=== PATIENT | male | born 1950 | race Caucasian/White ===

== ENCOUNTER 2018-10-06 08:30 | Outpatient (RCR) | payer MEDICARE, SELFPAY ==
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
--- OUTSIDE RECORDS SUMMARY | 2018-11-20 06:11 | XMS RPT_ITS ---
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 More... Abnormal weight loss [R63.4] INVALID FOR* More... Altered bowel habits [R19.4] INVALID FOR* More... Prescriptions ordered this encounter Disp Refills Start End CLONAZEPAM 1 MG TABLET 180 * 0 09/20/2018 12/19/2018 Class: Print RX Route: ORAL Sig: Take 1 tablet by mouth twice daily as needed for up to 90 days. TRAMADOL ER 100 MG TABLET,EXTENDED R* 90 t* 0 09/20/2018 12/19/2018 Class: Print RX Route: ORAL Sig: Take 1 tablet by mouth once daily for 90 days. Medications Discontinued During This Encounter sucralfate (CARAFATE) 1 gram tablet 56 t* 0 07/21/2018 09/20/2018 Route: ORAL Sig: Take 1 tablet by mouth four times daily. Take before meals and at bedtime. Disc: Reason for discontinue is not on file. omeprazole (PRILOSEC) 20 mg capsule 30 c* 1 07/18/2018 09/20/2018 Route: ORAL Sig: Take 1 capsule by mouth daily before breakfast. 1/2 hr before meal. Disc: Reason for discontinue is not on file. FOLIC ACID/MULTIVIT-MIN/LUTEIN (CENT* 09/20/2018 Class: Historical Med Route: ORAL Sig: Take by mouth. Disc: Reason for discontinue is not on file. clonazePAM (KLONOPIN) 1 mg tablet 180 * 0 05/13/2018 09/20/2018 Class: Call Rx Route: ORAL Sig: Take 1 tablet by mouth three times daily as needed for up to 90 days. Disc: Reason for discontinue is not on file. Disposition: Return in about 3 months (around 12/21/2018). Follow-up and Disposition History Recorded Encounter Status:Closed by HERNAN PEREZ MD on 09/20/18 PROGRESS Observed: 08/09/2018 Status: COMPLETED Source: [place] 7:[address] [facility] [place] REPOSITORY O ID: [id number] Author: Violet Lopez (Layo) Levon Service: (none) Author Type: Nurse Practitioner Type: Progress Notes Filed: 08/09/2018 9:21 AM Note Text: Chief Complaint Patient presents with: Recheck: medication Imm/Inj: Flu Vaccine HPI Kenny Blackwell is a 68 year old male who presents here today for follow up heartburn and GERD. Since last seen he has started on Carafate, qid regimen. Reports the pain with heartburn, and reflux has completely resolved, however, he notes on 2 occasions in the past 2 weeks he has awakened in the night with nausea which resolves without intervention. He denies vomiting. He does admit to occasional night sweats, nothing recent. He has returned from his trip to [place], visit with his sister, had a great trip. Denies any weight loss, had recent weight gain. Last 3 Encounter Wt Readings: Date: Wt: 08/09/2018 68 kg (150 lb) 07/18/2018 64.9 kg (143 lb) 03/17/2018 66.9 kg (147 lb 6.4 oz) 9/HPI Kenny Blackwell is a 68 year old male who presents here today for Above Complaints, would like labs done. H/o h pylori infection in 2009, proof of cure breath test completed. Had EGD and Colonoscopy 10 months ago, Bx negative for h pylori. Reports no new foods or triggers to cause flare, nothing in his diet has changed, however, he noticed 4 days ago increase in sx and have progressively worsened. He is getting ready to travel to [place] to visit sister. Relates 2 sisters recently passed within 5 months of each other. Leaving end of this week. Has used OTC tabs without improvement. Reports sx include:acid Taste in mouth, epigastric burning, constant, symptoms wake him during the night. Only food that didn't flare sx was mac and cheese and oatmeal. + nausea denies any vomiting, denies any dark or tarry stools, no blood in stool. Reports last week he did notice decrease in stool frequency, last BM was this morning. ?REVIEW OF SYSTEMS PAIN ASSESSMENT: Negative for pain, history of chronic pain, or current treatment for a chronic pain condition. GENERAL: No weight loss, malaise or fevers RESPIRATORY: Negative for cough, hemoptysis, wheezing, COPD, dyspnea or shortness of breath CARDIOVASCULAR: Negative for chest pain, leg swelling, hypertension, CHF or palpitations GI: See HPI PSYCH: Positive for sleep disturbance: difficulties with sleep onset. Using Clonazepam at hs for sleep onset. Notes occasional sencond dose of Clonazepam. The ROS is otherwise negative. Past medical history, appointments, medications, allergies reviewed. Patient Allergies ALLERGIES Allergen Reactions - Codeine Other: See Comments keeps patient awake - Diclofenac Rash - Flagyl [Metronidazo* Intolerance headache, nausea and increased salivation - Flexeril [Cyclobenz* Other: See Comments Leg cramps - [place] Shortness of Breath - Oxycodone Other: See Comments restlessness - Penicillins - Vicodin [Hydrocodon* Other: See Comments Makes patient hyper Current Medications Current Outpatient Prescriptions on File Prior to Visit: sucralfate (CARAFATE) 1 gram tablet Take 1 tablet by mouth four times daily. Take before meals and at bedtime. omeprazole (PRILOSEC) 20 mg capsule Take 1 capsule by mouth daily before breakfast. 1/2 hr before meal. traMADol (ULTRAM) 50 mg tablet 1 tablet po daily. clonazePAM (KLONOPIN) 1 mg tablet Take 1 tablet by mouth three times daily as needed for up to 90 days. selenium FOLIC ACID/MULTIVIT-MIN/LUTEIN (CENTRUM SILVER ORAL) Take by mouth. No current facility-administered medications on file prior to visit. Previous Medical History PAST MEDICAL HISTORY Diagnosis Date - Basal cell carcinoma 01/31/2013 - Depression - Hypertension - Nausea - Neck pain - Sebaceous cyst 03/13/2014 Previous Surgical History PAST SURGICAL HISTORY Procedure Laterality Date - APPENDECTOMY - COLONOSCOP W/ OR W/O BRSH SPEC 04/05/2013 Colonoscopy - EGD W/O OR W/BRUSH/WASH 12/06/2009 EGD - EGD W/O OR W/BRUSH/WASH 04/05/2013 EGD - REM LESIO TRUNK,ARM,LEG 1.1 -2.0CM 03/13/14 Exc. 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 General Appearance: Well appearing, alert, in no acute distress, well-hydrated, well nourished.. Ears: External ears normal, canals clear. Oropharynx: Lips, mucosa, and tongue normal, teeth and gums normal, oropharynx normal. Neck: Supple, no adenopathy; thyroid symmetric, normal size, Lungs: Lungs clear to auscultation. No wheezing, rhonchi, rales. Heart: RRR without murmur, gallop, or rubs. No ectopy. Abdomen: Normal abdominal exam, Abdomen soft, non-tender. Bowel sounds normal. No masses, organomegaly. ASSESSMENT/PLAN: 1. GERD with esophagitis - ICD9: 530.11, ICD10: K21.0 (primary diagnosis) - Discussed lifestyle modifications including no meals three hours before sleep and head of bed elevation - Check breath test after completing 2 month course PPI - Continue treatment with Prilosec 20 mg QD - Follow up in 6weeks For Breath test - BREATH TEST H PYLORI 2. Need for vaccination - ICD9: V05.9, ICD10: Z23 - INFLUENZA SEASONAL HIGH DOSE AGE 65+ 3. Nausea - ICD9: 787.02, ICD10: R11.0 - BREATH TEST H PYLORI Recommend adding Melatonin to has for sleep and discussed white noise machine and sleep hygiene practices. Violet Dos Santos, MSN SUPERVISOR [employer]MACHINE JOINT CUTTER PROGRESS Observed: 08/09/2018 Status: COMPLETED Source: [place] 7:[address] [facility] RE[facility]ITORY O ID: [id number] Author: Nafisa Gardner LPN Service: (none) Author Type: (none) Type: Progress Notes Filed: 08/09/2018 9:21 AM Note Text: 68 year old male here for INACTIVATED INFLUENZA VACCINE. [id number] Season Patient is identified by name and date of : Yes [] CONTRAINDICATIONS color enhanced section Age less than 6 months? No Allergy to eggs, chicken, chicken feathers, or chicken dander? No Allergy to thimerosal (a preservative) or formaldehyde, gelatin? No History of severe reaction to any vaccine component or a previous dose of influenza vaccination? No History of Guillain-Nubieber Syndrome within 6 weeks after a previous influenza vaccine? No Patient is not moderately or severely ill? No Current temperature greater or equal to 100.4F? No History of Bone Marrow Transplant prior 6 months or solid organ transplant in the past 3 months ? No History of fainting after a prior injection or medical procedure? No- ? If patient has fainted in the past, the CDC recommends sitting or lying down for 15 minutes after the vaccination. [] VERIFICATION color enhanced section Was the answer Yes for any of the above contraindications? No contraindications present. Acceptable to proceed with vaccine. Patient/guardian agrees the above answers are true to the best of their knowledge? Yes Flu vaccine information sheet given? Yes See immunization activity in [facility] for details of immunizations adminstered today. Patient age: [age] year old For The 0425-6988 Flu Season 6-35 months old: Fluzone 0.25 ml - IM (Preservative Free) 3 years of age: Fluzone 0.5 ml - IM (Preservative Free) 3 years and older: Fluzone 0.5 ml- IM-(with Preservatives) 65+ years old: 2-49 years old Fluzone High-Dose 0.5 ml - IM (Preservative Free) FLUMIST- intranasal REMEMBER: If patient is less than 9 years of age and this is the first vaccine of Influenza to be received in any flu season, they should receive a second dose in one months time. SUNDAR Observed: 08/09/2018 Status: COMPLETED Source: [place] 7:40 AM [facility] REPOSITORY Office Visit (FAMPWS) KENNY BLACKWELL ([id number]) 1950 M Date Time Provider Department 08/09/18 7:40 AM VIOLET DOS SANTOS (STARCH COOKER) FAMPWS During your visit today, we recorded the following information about you: Temperature Pulse Respiration Blood pressure 97.2 degrees 60/minute 16/minute 136/86 Weight 68 kg Nafisa Gardner LPN 08/09/2018 9:21 AM Signed 68 year old male here for INACTIVATED INFLUENZA VACCINE. 5637-4528 Season Patient is identified by name and date of : Yes [] CONTRAINDICATIONS color enhanced section Age less than 6 months? No Allergy to eggs, chicken, chicken feathers, or chicken dander? No Allergy to thimerosal (a preservative) or formaldehyde, gelatin? No History of severe reaction to any vaccine component or a previous dose of influenza vaccination? No History of Guillain-Nubieber Syndrome within 6 weeks after a previous influenza vaccine? No Patient is not moderately or severely ill? No Current temperature greater or equal to 100.4F? No History of Bone Marrow Transplant prior 6 months or solid organ transplant in the past 3 months ? No History of fainting after a prior injection or medical procedure? No- ? If patient has fainted in the past, the CDC recommends sitting or lying down for 15 minutes after the vaccination. [] VERIFICATION color enhanced section Was the answer Yes for any of the above contraindications? No contraindications present. Acceptable to proceed with vaccine. Patient/guardian agrees the above answers are true to the best of their knowledge? Yes Flu vaccine information sheet given? Yes See immunization activity in [facility] for details of immunizations adminstered today. Patient age: [age] year old For The 6929-1684 Flu Season 6-35 months old: Fluzone 0.25 ml - IM (Preservative Free) 3 years of age: Fluzone 0.5 ml - IM (Preservative Free) 3 years and older: Fluzone 0.5 ml- IM-(with Preservatives) 65+ years old: 2-49 years old Fluzone High-Dose 0.5 ml - IM (Preservative Free) FLUMIST- intranasal REMEMBER: If patient is less than 9 years of age and this is the first vaccine of Influenza to be received in any flu season, they should receive a second dose in one months time. Violet Dos Santos, MSN SUPERVISOR [employer]MACHINE JOINT CUTTER 08/09/2018 9:21 AM Signed Chief Complaint Patient presents with: Recheck: medication Imm/Inj: Flu Vaccine HPI Kenny Blackwell is a 68 year old male who presents here today for follow up heartburn and GERD. Since last seen he has started on Carafate, qid regimen. Reports the pain with heartburn, and reflux has completely resolved, however, he notes on 2 occasions in the past 2 weeks he has awakened in the night with nausea which resolves without intervention. He denies vomiting. He does admit to occasional night sweats, nothing recent. He has returned from his trip to [place], visit with his sister, had a great trip. Denies any weight loss, had recent weight gain. Last 3 Encounter Wt Readings: Date: Wt: 08/09/2018 68 kg (150 lb) 07/18/2018 64.9 kg (143 lb) 03/17/2018 66.9 kg (147 lb 6.4 oz) 9/HPI Kenny Blackwell is a 68 year old male who presents here today for Above Complaints, would like labs done. H/o h pylori infection in 2009, proof of cure breath test completed. Had EGD and Colonoscopy 10 months ago, Bx negative for h pylori. Reports no new foods or triggers to cause flare, nothing in his diet has changed, however, he noticed 4 days ago increase in sx and have progressively worsened. He is getting ready to travel to [place] to visit sister. Relates 2 sisters recently passed within 5 months of each other. Leaving end of this week. Has used OTC tabs without improvement. Reports sx include:acid Taste in mouth, epigastric burning, constant, symptoms wake him during the night. Only food that didn't flare sx was mac and cheese and oatmeal. + nausea denies any vomiting, denies any dark or tarry stools, no blood in stool. Reports last week he did notice decrease in stool frequency, last BM was this morning. ?REVIEW OF SYSTEMS PAIN ASSESSMENT: Negative for pain, history of chronic pain, or current treatment for a chronic pain condition. GENERAL: No weight loss, malaise or fevers RESPIRATORY: Negative for cough, hemoptysis, wheezing, COPD, dyspnea or shortness of breath CARDIOVASCULAR: Negative for chest pain, leg swelling, hypertension, CHF or palpitations GI: See HPI PSYCH: Positive for sleep disturbance: difficulties with sleep onset. Using Clonazepam at hs for sleep onset. Notes occasional sencond dose of Clonazepam. The ROS is otherwise negative. Past medical history, appointments, medications, allergies reviewed. Patient Allergies ALLERGIES Allergen Reactions - Codeine Other: See Comments keeps patient awake - Diclofenac Rash - Flagyl [Metronidazo* Intolerance headache, nausea and increased salivation - Flexeril [Cyclobenz* Other: See Comments Leg cramps - [place] Shortness of Breath - Oxycodone Other: See Comments restlessness - Penicillins - Vicodin [Hydrocodon* Other: See Comments Makes patient hyper Current Medications Current Outpatient Prescriptions on File Prior to Visit: sucralfate (CARAFATE) 1 gram tablet Take 1 tablet by mouth four times daily. Take before meals and at bedtime. omeprazole (PRILOSEC) 20 mg capsule Take 1 capsule by mouth daily before breakfast. 1/2 hr before meal. traMADol (ULTRAM) 50 mg tablet 1 tablet po daily. clonazePAM (KLONOPIN) 1 mg tablet Take 1 tablet by mouth three times daily as needed for up to 90 days. selenium FOLIC ACID/MULTIVIT-MIN/LUTEIN (CENTRUM SILVER ORAL) Take by mouth. No current facility-administered medications on file prior to visit. Previous Medical History PAST MEDICAL HISTORY Diagnosis Date - Basal cell carcinoma 01/31/2013 - Depression - Hypertension - Nausea - Neck pain - Sebaceous cyst 03/13/2014 Previous Surgical History PAST SURGICAL HISTORY Procedure Laterality Date - APPENDECTOMY - COLONOSCOP W/ OR W/O BRSH SPEC 04/05/2013 Colonoscopy - EGD W/O OR W/BRUSH/WASH 12/06/2009 EGD - EGD W/O OR W/BRUSH/WASH 04/05/2013 EGD - REM LESIO TRUNK,ARM,LEG 1.1 -2.0CM 03/13/14 Exc. 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 General Appearance: Well appearing, alert, in no acute distress, well-hydrated, well nourished.. Ears: External ears normal, canals clear. Oropharynx: Lips, mucosa, and tongue normal, teeth and gums normal, oropharynx normal. Neck: Supple, no adenopathy; thyroid symmetric, normal size, Lungs: Lungs clear to auscultation. No wheezing, rhonchi, rales. Heart: RRR without murmur, gallop, or rubs. No ectopy. Abdomen: Normal abdominal exam, Abdomen soft, non-tender. Bowel sounds normal. No masses, organomegaly. ASSESSMENT/PLAN: 1. GERD with esophagitis - ICD9: 530.11, ICD10: K21.0 (primary diagnosis) - Discussed lifestyle modifications including no meals three hours before sleep and head of bed elevation - Check breath test after completing 2 month course PPI - Continue treatment with Prilosec 20 mg QD - Follow up in 6weeks For Breath test - BREATH TEST H PYLORI 2. Need for vaccination - ICD9: V05.9, ICD10: Z23 - INFLUENZA SEASONAL HIGH DOSE AGE 65+ 3. Nausea - ICD9: 787.02, ICD10: R11.0 - BREATH TEST H PYLORI Recommend adding Melatonin to has for sleep and discussed white noise machine and sleep hygiene practices. Violet Dos Santos, MSN SUPERVISOR [employer]ACHINE JOINT CUTTER Referring Provider: VIOLET DOS SANTOS (STARCH COOKER) [[id number]] Allergies As of Date: 08/09/2018 Noted Allergy Reaction CODEINE 05/16/2014 14 - Other: See Comments Comments: keeps patient awake DICLOFENAC 05/24/2015 2 - Rash FLAGYL (METRONIDAZOLE HCL) 10/01/2009 5 - Intolerance Comments: headache, nausea and increased salivation FLEXERIL (CYCLOBENZAPRINE HCL) 02/05/2014 14 - Other: See Comments Comments: Leg cramps ORANGE BLOSSOM 06/28/2012 12 - Shortness of Breath OXYCODONE 09/29/2013 14 - Other: See Comments Comments: restlessness PENICILLINS 09/17/2009 VICODIN (HYDROCODONE-ACETAMINOPHE*09/29/2010 14 - Other: See Comments Comments: Makes patient hyper Date Reviewed: 08/09/2018 Reviewed by: Violet Lopez (Escrow Assistant) Levon - Fully Assessed Reason for Visit: Recheck [92] Cmt: medication Imm/Inj [58] Cmt: Flu Vaccine Reason For Visit History Recorded Primary Visit Diagnosis:GERD with esophagitis [K21.0] Other Visit Diagnoses:Need for vaccination [Z23] Nausea [R11.0] Order(s):INFLUENZA SEASONAL HIGH DOSE AGE 65+ [[id number]] Order #: [id number] BREATH TEST H PYLORI [SQHPYLBR] Order #: [id number] FUTURE Prescriptions as of 08/09/2018 Sig: SUCRALFATE 1 GRAM TABLET Take 1 tablet by mouth four t* OMEPRAZOLE 20 MG CAPSULE,MADISYN* Take 1 capsule by mouth daily* TRAMADOL 50 MG TABLET 1 tablet po daily. CLONAZEPAM 1 MG TABLET Take 1 tablet by mouth three * SELENIUM CENTRUM SILVER ORAL Take by mouth. Problem List As Of Date 08/09/2018 Noted Resolved Acute gastritis without mention of hemorrhage [*INVALID FOR* More... Dyspepsia [R10.13] INVALID FOR* Esophageal reflux [K21.9] INVALID FOR* HBP (high blood pressure) [I10] INVALID FOR* Depression [F32.9] INVALID FOR* More... Vertigo [R42] INVALID FOR* Unspecified sleep apnea [G47.30] INVALID FOR* More... RUQ abdominal pain [R10.11] INVALID FOR*07/24/2013 Lumbosacral spondylosis without myelopathy [M47*INVALID FOR* Degeneration of cervical intervertebral disc [M*INVALID FOR* Brachial neuritis or radiculitis NOS [M54.12] INVALID FOR* Dizziness [R42] INVALID FOR*07/24/2013 Cervical spinal stenosis [M48.02] INVALID FOR* More... Cervical radicular pain [M54.12] INVALID FOR*03/05/2014 Cervical spondylosis with radiculopathy [M47.22]INVALID FOR* More... Basal cell carcinoma [C44.91] INVALID FOR* Sebaceous cyst [L72.3] INVALID FOR*03/26/2014 SOB (shortness of breath) [R06.02] INVALID FOR* More... Anxiety [F41.9] INVALID FOR* Panic disorder [F41.0] INVALID FOR* Shoulder pain, bilateral [M25.511, M25.512] INVALID FOR* Cervical radiculitis [M54.12] INVALID FOR* History of fusion of cervical spine [Z98.1] INVALID FOR* Essential hypertension [I10] INVALID FOR* Nausea [R11.0] INVALID FOR* More... Abnormal weight loss [R63.4] INVALID FOR* More... Altered bowel habits [R19.4] INVALID FOR* More... Encounter Status:Closed by VIOLET DOS SANTOS MACHINE JOINT CUTTER on 08/09/18 CBC AND DIFFERENTIAL Collected: 07/18/2018 Status: F Source: [place] 10:32 AM [facility] REPOSITORY TYPE CODE TESTS RESULT OUT OF REFERENCE UNITS RANGE LAB WBC 3.70-11.00 k/uL WBC 10.03 LAB RBC 4.20-6.00 m/uL RBC 4.60 LAB HGB 13.0-17.0 g/dL Hemoglobin 13.6 LAB HCT 39.0-51.0 % Hematocrit 42.1 LAB MCV 80.0-100.0 fL MCV 91.5 LAB MCH 26.0-34.0 pG MCH 29.6 LAB MCHC 30.5-36.0 g/dL MCHC 32.3 LAB RDWCV 11.5-15.0 % RDW-CV 13.2 LAB PLTCT 150-400 k/uL Platelet Count 254 LAB MPV 9.0-12.7 fL MPV 10.8 LAB ANEUT % Neut% 75.8 LAB AANEUT 1.45-7.50 k/uL Abs Neut High 7.61 LAB ALYMP % Lymph% 15.4 LAB AALYMP 1.00-4.00 k/uL Abs Lymph 1.54 LAB AMONO % [place]% 8.3 LAB AAMONO <0.87 k/uL Abs [place] 0.83 LAB AEOS % Eosin% 0.2 LAB AAEOS <0.46 k/uL Abs Eosin <0.03 LAB ABASO % Baso% 0.3 LAB AABASO <0.11 k/uL Abs Baso 0.03 LAB AUNRBC 0 /100 WBC NRBCs 0.0 LAB ABNRBC <0.01 k/uL Absolute nRBC <0.01 LAB DTYP DTYPE Auto Diff Performed By: #### CBCDIF, CMP, LIPA, PSA #### [facility] [address] [place] [id number] COMP METABOLIC PANEL Collected: 07/18/2018 Status: F Source: [place] 10:[address] [facility] RE[facility]ORY TYPE CODE TESTS RESULT OUT OF REFERENCE UNITS RANGE LAB TP 6.3-8.0 g/dL Protein, Total 7.2 LAB ALB 3.9-4.9 g/dL Albumin 4.3 LAB CA 8.5-10.2 mg/dL Calcium, Total 9.1 LAB TBIL 0.2-1.3 mg/dL Bilirubin, Total 0.4 LAB ALKP 36-108 U/L Alkaline Phosphatase 44 LAB AST 14-40 U/L AST 15 LAB GLU 74-99 mg/dL Glucose High 100 Result Comment: The [place] [employer] (ADA) provides guidance for cutoff values for fasting glucose and random glucose. The ADA defines fasting as no caloric intake for at least 8 hours. Fas ting plasma glucose results between 100 to 125 mg/dL indicate increased risk for diabetes (prediabetes). Fasting plasma glucose results greater than or equal to 126 mg/dL meet the criteria for diagnosis of diabetes. In the absence of unequivocal hyperglycemia, results should be confirmed by repeat testing. In a patient with classic symptoms of hyperglycemia or hyperglycemic crisis, random plasma glucose results greater than or equal to 200 mg/dL meet the criteria for diagnosis of diabetes. Reference: Standards of Medical Care in Diabetes 2016, [place] [employer]. Diabetes Care. 2016.39(Suppl 1). LAB BUN 9-24 mg/dL BUN 13 LAB CRET 0.73-1.22 mg/dL Creatinine 0.96 LAB NA 136-144 mmol/L Sodium 138 LAB K 3.7-5.1 mmol/L Potassium 4.1 LAB CL 97-105 mmol/L Chloride 100 LAB CO2 22-30 mmol/L CO2 25 LAB AGAP 9-18 mmol/L Anion Gap 13 LAB ALT 10-54 U/L ALT Low 6 LAB GFRAA eGFR- Amer. >60 LAB GFRNAA . eGFR-All Other Races >60 Result Comment: eGFR (Estimated GFR) Units of measure: mL/min/1.73 meters squared eGFR is derived from the reexpressed MDRD Study equation using the following parameters: serum creatinine, age, gender and race. The creatinine assay has been calibrated to be traceable to IDMS. An eGFR <60 mL/min/1.73m2 for >3 months is consistent with chronic kidney disease. Refer to KDOQI guidelines for clinical interpretation. In patients with unstable renal function, e.g. those with acute kidney injury, the eGFR may not accurately reflect actual GFR. Performed By: #### CBCDIF, CMP, LIPA, PSA #### [facility] [employer] [address], [place] [address] LIPASE Collected: 07/18/2018 Status: F Source: [place] 10:[address] [facility] REPOSITORY TYPE CODE TESTS RESULT OUT OF REFERENCE UNITS RANGE LAB LIPA 16-61 U/L Lipase 31 Performed By: #### CBCDIF, CMP, LIPA, PSA #### [facility] [address] [id number] PSA, DIAGNOSTIC Collected: 07/18/2018 Status: F Source: [place] 10:32 AM [facility] REPOSITORY TYPE CODE TESTS RESULT OUT OF REFERENCE UNITS RANGE LAB PSA 0.00-2.59 ng/mL PSA, Diagnostic 0.38 Result Comment: Total PSA test methodology used is the Electrochemiluminescence Immunoassay. Performed By: #### CBCDIF, CMP, LIPA, PSA #### [facility] [address] [id number] TSH Collected: 07/18/2018 Status: F Source: [place] 10:32 AM [facility] REPOSITORY TYPE CODE TESTS RESULT OUT OF RANGE REFERENCE UNITS LAB TSH 0.400-5.500 uU/mL TSH 1.790 Performed By: #### TSH #### [place] [id number] PROGRESS Observed: 07/18/2018 Status: COMPLETED Source: [place] 9:55 AM [facility] REPOSITORY HNO ID: [id number] Author: Violet Lopez (Layo) Levon Service: (none) Author Type: Nurse Practitioner Type: Progress Notes Filed: 07/18/2018 10:28 AM Note Text: Chief Complaint Patient presents with: acid reflux: patient is having a flare up x 5 days HPI Kenny Blackwell is a 68 year old male who presents here today for Above Complaints, would like labs done. H/o h pylori infection in 2009, proof of cure breath test completed. Had EGD and Colonoscopy 10 months ago, Bx negative for h pylori. Reports no new foods or triggers to cause flare, nothing in his diet has changed, however, he noticed 4 days ago increase in sx and have progressively worsened. He is getting ready to travel to [place] to visit sister. Relates 2 sisters recently passed within 5 months of each other. Leaving end of this week. Has used OTC tabs without improvement. Reports sx include:acid Taste in mouth, epigastric burning, constant, symptoms wake him during the night. Only food that didn't flare sx was mac and cheese and oatmeal. + nausea denies any vomiting, denies any dark or tarry stools, no blood in stool. Reports last week he did notice decrease in stool frequency, last BM was this morning. Patient Name Sex Kenny Blackwell ([id number]) Male 1950 10/14/2017 11:27 AM - Interface, Results II Results Specimen originated from [facility] Specimen #: [id number] Submitting Physician: ROSANNA DELVALLE MD FINAL DIAGNOSIS 1. Antrum, biopsy (A) - Gastric antral mucosa with no significant diagnostic alteration. - No morphologic evidence of Helicobacter pylori organisms. ? 2. Cecum polyp, biopsy (B) - Tubular adenoma. ? 3. Random colon, biopsy (C) - Colonic mucosa with no specific diagnostic alteration. See comment. ? LMY/dss 10/14/2017 ? COMMENT 3. There is no evidence of chronic or active colitis. There is no evidence of lymphocytic or collagenous colitis. Gloria Gillespie M.D. (Electronic Signature) Past medical history, appointments, medications, allergies reviewed. Previous Medical History PAST MEDICAL HISTORY Diagnosis Date - Basal cell carcinoma 01/31/2013 - Depression - Hypertension - Nausea - Neck pain - Sebaceous cyst 03/13/2014 Previous Surgical History PAST SURGICAL HISTORY Procedure Laterality Date - APPENDECTOMY - COLONOSCOP W/ OR W/O BRSH SPEC 04/05/2013 Colonoscopy - EGD W/O OR W/BRUSH/WASH 12/06/2009 EGD - EGD W/O OR W/BRUSH/WASH 04/05/2013 EGD - REM LESIO TRUNK,ARM,LEG 1.1 -2.0CM 03/13/14 Exc. jonathan cysts x 2 - XR CERVICAL FUSION OR 09/15/14 Family History FAMILY HISTORY Problem Relation Age of Onset - Alzheimer's Disease Mother - other (Sepsis) Sister - None Other Patient Allergies ALLERGIES Allergen Reactions - Codeine Other: See Comments keeps patient awake - Diclofenac Rash - Flagyl [Metronidazo* Intolerance headache, nausea and increased salivation - Flexeril [Cyclobenz* Other: See Comments Leg cramps - [place] Shortness of Breath - Oxycodone Other: See Comments restlessness - Penicillins - Vicodin [Hydrocodon* Other: See Comments Makes patient hyper Current Medications Current Outpatient Prescriptions on File Prior to Visit: traMADol (ULTRAM) 50 mg tablet 1 tablet po daily. clonazePAM (KLONOPIN) 1 mg tablet Take 1 tablet by mouth three times daily as needed for up to 90 days. FOLIC ACID/MULTIVIT-MIN/LUTEIN (CENTRUM SILVER ORAL) Take by mouth. selenium No current facility-administered medications on file prior to visit. 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 Social History Main Topics Smoking status: Former Smoker Packs/day: 1.00 Years: 25.00 Types: Cigarettes Quit date: 10/25/1990 Smokeless tobacco: Never Used Alcohol use: No Drug use: No Sexual activity: No Review of Symptoms REVIEW OF SYSTEMS PAIN ASSESSMENT: CURRENTLY HAVING PAIN; see HPI Epigastric region GENERAL: No weight loss, malaise or fevers HEENT: Negative for frequent or significant headaches, No changes in hearing or vision, no nose bleeds or other nasal problems NECK: Negative for lumps, goiter, pain and significant neck swelling RESPIRATORY: Negative for cough, hemoptysis, wheezing, COPD, dyspnea or shortness of breath CARDIOVASCULAR: Negative for chest pain, leg swelling, hypertension, CHF or palpitations GI: See HPI EXAM: BP 122/82 (BP Site: Right Arm, BP Position: Sitting, BP Cuff Size: Regular Adult) Pulse 76 Temp 36.9 ?C (98.5 ?F) (Tympanic) Resp 16 Wt 64.9 kg (143 lb) BMI 20.52 kg/m? General Appearance: Well appearing, alert, in no acute distress, well-hydrated, well nourished.. Oropharynx: Lips, mucosa, and tongue normal, teeth and gums normal, oropharynx normal. Neck: Supple, no adenopathy; thyroid symmetric, normal size, Lungs: Lungs clear to auscultation. No wheezing, rhonchi, rales. Heart: RRR without murmur, gallop, or rubs. No ectopy. Abdomen: Normal abdominal exam, Abdomen soft, non-tender. Bowel sounds normal. No masses, organomegaly, Positive findings: tenderness mild epigastric. Health Maintenance List BP CONTROLLED (<130/80) due on 1967 HEPATITIS C SCREENING due on 1993 INFLUENZA(1) due on 06/25/2018 ANNUAL PCP TEAM CHRONIC DISEASE VISIT due on 03/17/2019 LIPID SCREEN due on 01/27/2020 DIABETES SCREEN due on 09/29/2020 COLORECTAL CANCER SCREENING,SEE MODIFIER due on 10/11/2022 DTAP,TDAP,TD(3 - Td) due on 02/08/2028 ABDOMINAL AORTIC ANEURYSM SCREENING TOPIC Completed ADULT PREVNAR-13 Completed PNEUMOVAX AGE 65 AND OVER WITH 5YR LOOKBACK Completed ASSESSMENT/PLAN: 1. Gastroesophageal reflux disease without esophagitis - ICD9: 530.81, ICD10: K21.9 (primary diagnosis) - Check CBC, CMP ? Anxiety due to upcoming trip as underlying etiology. - Begin treatment with Prilosec 20 mg QD - Follow up in 3weeks -Keep diet bland for now, handout from [employer] given on GERD - OMEPRAZOLE 20 MG CAPSULE,DELAYED RELEASE 2. Epigastric pain - ICD9: 789.06, ICD10: R10.13 - Begin treatment with Prilosec 20 mg QD - Labs as ordered. - CBC + DIFF - COMP METABOLIC PANEL - LIPASE BLD 3. Screening for prostate cancer - ICD9: V76.44, ICD10: Z12.5 - PSA/PROSTSPECAG DANK Dos Santos, MSN [employer] CNOV Observed: 07/18/2018 Status: COMPLETED Source: [place] 9:40 AM [facility] RE[facility]ITORY [facility] KENNY BLACKWELL ([id number]) 1950 M Date Time Provider Department 07/18/18 9:40 AM VIOLET DOS SANTOS (STARCH COOKER) R[place] During your visit today, we recorded the following information about you: Temperature Pulse Respiration Blood pressure 98.5 degrees 76/minute 16/minute 122/82 Weight 64.9 kg Violet Dos Santos, MSN [employer] 07/18/2018 10:28 AM Signed Chief Complaint Patient presents with: acid reflux: patient is having a flare up x 5 days HPI Kenny Blackwell is a 68 year old male who presents here today for Above Complaints, would like labs done. H/o h pylori infection in 2009, proof of cure breath test completed. Had EGD and Colonoscopy 10 months ago, Bx negative for h pylori. Reports no new foods or triggers to cause flare, nothing in his diet has changed, however, he noticed 4 days ago increase in sx and have progressively worsened. He is getting ready to travel to [place] to visit sister. Relates 2 sisters recently passed within 5 months of each other. Leaving end of this week. Has used OTC tabs without improvement. Reports sx include:acid Taste in mouth, epigastric burning, constant, symptoms wake him during the night. Only food that didn't flare sx was mac and cheese and oatmeal. + nausea denies any vomiting, denies any dark or tarry stools, no blood in stool. Reports last week he did notice decrease in stool frequency, last BM was this morning. Patient Name Sex Kenny Blackwell ([id number]) Male 1950 10/14/2017 11:27 AM - Interface, Results II Results Specimen originated from [facility] Specimen #: [id number] Submitting Physician: ROSANNA DELVALLE MD FINAL DIAGNOSIS 1. Antrum, biopsy (A) - Gastric antral mucosa with no significant diagnostic alteration. - No morphologic evidence of Helicobacter pylori organisms. ? 2. Cecum polyp, biopsy (B) - Tubular adenoma. ? 3. Random colon, biopsy (C) - Colonic mucosa with no specific diagnostic alteration. See comment. ? LMY/dss 10/14/2017 ? COMMENT 3. There is no evidence of chronic or active colitis. There is no evidence of lymphocytic or collagenous colitis. Gloria Gillespie M.D. (Electronic Signature) Past medical history, appointments, medications, allergies reviewed. Previous Medical History PAST MEDICAL HISTORY Diagnosis Date - Basal cell carcinoma 01/31/2013 - Depression - Hypertension - Nausea - Neck pain - Sebaceous cyst 03/13/2014 Previous Surgical History PAST SURGICAL HISTORY Procedure Laterality Date - APPENDECTOMY - COLONOSCOP W/ OR W/O BRSH SPEC 04/05/2013 Colonoscopy - EGD W/O OR W/BRUSH/WASH 12/06/2009 EGD - EGD W/O OR W/BRUSH/WASH 04/05/2013 EGD - REM LESIO TRUNK,ARM,LEG 1.1 -2.0CM 03/13/14 Exc. jonathan cysts x 2 - XR CERVICAL FUSION OR 09/15/14 Family History FAMILY HISTORY Problem Relation Age of Onset - Alzheimer's Disease Mother - other (Sepsis) Sister - None Other Patient Allergies ALLERGIES Allergen Reactions - Codeine Other: See Comments keeps patient awake - Diclofenac Rash - Flagyl [Metronidazo* Intolerance headache, nausea and increased salivation - Flexeril [Cyclobenz* Other: See Comments Leg cramps - [place] Shortness of Breath - Oxycodone Other: See Comments restlessness - Penicillins - Vicodin [Hydrocodon* Other: See Comments Makes patient hyper Current Medications Current Outpatient Prescriptions on File Prior to Visit: traMADol (ULTRAM) 50 mg tablet 1 tablet po daily. clonazePAM (KLONOPIN) 1 mg tablet Take 1 tablet by mouth three times daily as needed for up to 90 days. FOLIC ACID/MULTIVIT-MIN/LUTEIN (CENTRUM SILVER ORAL) Take by mouth. selenium No current facility-administered medications on file prior to visit. 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 Social History Main Topics Smoking status: Former Smoker Packs/day: 1.00 Years: 25.00 Types: Cigarettes Quit date: 10/25/1990 Smokeless tobacco: Never Used Alcohol use: No Drug use: No Sexual activity: No Review of Symptoms REVIEW OF SYSTEMS PAIN ASSESSMENT: CURRENTLY HAVING PAIN; see HPI Epigastric region GENERAL: No weight loss, malaise or fevers HEENT: Negative for frequent or significant headaches, No changes in hearing or vision, no nose bleeds or other nasal problems NECK: Negative for lumps, goiter, pain and significant neck swelling RESPIRATORY: Negative for cough, hemoptysis, wheezing, COPD, dyspnea or shortness of breath CARDIOVASCULAR: Negative for chest pain, leg swelling, hypertension, CHF or palpitations GI: See HPI EXAM: BP 122/82 (BP Site: Right Arm, BP Position: Sitting, BP Cuff Size: Regular Adult) Pulse 76 Temp 36.9 ?C (98.5 ?F) (Tympanic) Resp 16 Wt 64.9 kg (143 lb) BMI 20.52 kg/m? General Appearance: Well appearing, alert, in no acute distress, well-hydrated, well nourished.. Oropharynx: Lips, mucosa, and tongue normal, teeth and gums normal, oropharynx normal. Neck: Supple, no adenopathy; thyroid symmetric, normal size, Lungs: Lungs clear to auscultation. No wheezing, rhonchi, rales. Heart: RRR without murmur, gallop, or rubs. No ectopy. Abdomen: Normal abdominal exam, Abdomen soft, non-tender. Bowel sounds normal. No masses, organomegaly, Positive findings: tenderness mild epigastric. Health Maintenance List BP CONTROLLED (<130/80) due on 1967 HEPATITIS C SCREENING due on 1993 INFLUENZA(1) due on 06/25/2018 ANNUAL PCP TEAM CHRONIC DISEASE VISIT due on 03/17/2019 LIPID SCREEN due on 01/27/2020 DIABETES SCREEN due on 09/29/2020 COLORECTAL CANCER SCREENING,SEE MODIFIER due on 10/11/2022 DTAP,TDAP,TD(3 - Td) due on 02/08/2028 ABDOMINAL AORTIC ANEURYSM SCREENING TOPIC Completed ADULT PREVNAR-13 Completed PNEUMOVAX AGE 65 AND OVER WITH 5YR LOOKBACK Completed ASSESSMENT/PLAN: 1. Gastroesophageal reflux disease without esophagitis - ICD9: 530.81, ICD10: K21.9 (primary diagnosis) - Check CBC, CMP ? Anxiety due to upcoming trip as underlying etiology. - Begin treatment with Prilosec 20 mg QD - Follow up in 3weeks -Keep diet bland for now, handout from [employer] given on GERD - OMEPRAZOLE 20 MG CAPSULE,DELAYED RELEASE 2. Epigastric pain - ICD9: 789.06, ICD10: R10.13 - Begin treatment with Prilosec 20 mg QD - Labs as ordered. - CBC + DIFF - COMP METABOLIC PANEL - LIPASE BLD 3. Screening for prostate cancer - ICD9: V76.44, ICD10: Z12.5 - PSA/PROSTSPECAG SEVENG Violet Dos Santos, MSN [employer] Referring Provider: SELF [[id number]] Allergies As of Date: 07/18/2018 Noted Allergy Reaction CODEINE 05/16/2014 14 - Other: See Comments Comments: keeps patient awake DICLOFENAC 05/24/2015 2 - Rash FLAGYL (METRONIDAZOLE HCL) 10/01/2009 5 - Intolerance Comments: headache, nausea and increased salivation FLEXERIL (CYCLOBENZAPRINE HCL) 02/05/2014 14 - Other: See Comments Comments: Leg cramps ORANGE BLOSSOM 06/28/2012 12 - Shortness of Breath OXYCODONE 09/29/2013 14 - Other: See Comments Comments: restlessness PENICILLINS 09/17/2009 VICODIN (HYDROCODONE-ACETAMINOPHE*09/29/2010 14 - Other: See Comments Comments: Makes patient hyper Date Reviewed: 07/18/2018 Reviewed by: Nafisa Gardner LPN - Fully Assessed Reason for Visit: acid reflux [Other] Cmt: patient is having a flare up x 5 days Primary Visit Diagnosis:Gastroesophageal reflux disease without esophagitis [K21.9] Other Visit Diagnoses:Epigastric pain [R10.13] Screening for prostate cancer [Z12.5] Order(s):omeprazole (PRILOSEC) 20 mg capsuleTake 1 capsule by mouth daily before breakfast. 1/2 hr before meal.Disp: 30 capsuleRfl: 1 CBC + DIFF [SQCBCDIF] Order #: [id number] FUTURE COMP METABOLIC PANEL [SQCMP] Order #: [id number] FUTURE LIPASE BLD [SQLIPA] Order #: [id number] FUTURE PSA/PROSTSPECAG DIAG [SQPSA] Order #: [id number] FUTURE Prescriptions as of 07/18/2018 Sig: TRAMADOL 50 MG TABLET 1 tablet po daily. CLONAZEPAM 1 MG TABLET Take 1 tablet by mouth three * CENTRUM SILVER ORAL Take by mouth. SELENIUM OMEPRAZOLE 20 MG CAPSULE,MADISYN* Take 1 capsule by mouth daily* Problem List As Of Date 07/18/2018 Noted Resolved Acute gastritis without mention of hemorrhage [*INVALID FOR* More... Dyspepsia [R10.13] INVALID FOR* Esophageal reflux [K21.9] INVALID FOR* HBP (high blood pressure) [I10] INVALID FOR* Depression [F32.9] INVALID FOR* More... Vertigo [R42] INVALID FOR* Unspecified sleep apnea [G47.30] INVALID FOR* More... RUQ abdominal pain [R10.11] INVALID FOR*07/24/2013 Lumbosacral spondylosis without myelopathy [M47*INVALID FOR* Degeneration of cervical intervertebral disc [M*INVALID FOR* Brachial neuritis or radiculitis NOS [M54.12] INVALID FOR* Dizziness [R42] INVALID FOR*07/24/2013 Cervical spinal stenosis [M48.02] INVALID FOR* More... Cervical radicular pain [M54.12] INVALID FOR*03/05/2014 Cervical spondylosis with radiculopathy [M47.22]INVALID FOR* More... Basal cell carcinoma [C44.91] INVALID FOR* Sebaceous cyst [L72.3] INVALID FOR*03/26/2014 SOB (shortness of breath) [R06.02] INVALID FOR* More... Anxiety [F41.9] INVALID FOR* Panic disorder [F41.0] INVALID FOR* Shoulder pain, bilateral [M25.511, M25.512] INVALID FOR* Cervical radiculitis [M54.12] INVALID FOR* History of fusion of cervical spine [Z98.1] INVALID FOR* Essential hypertension [I10] INVALID FOR* Nausea [R11.0] INVALID FOR* More... Abnormal weight loss [R63.4] INVALID FOR* More... Altered bowel habits [R19.4] INVALID FOR* More... Prescriptions ordered this encounter Disp Refills Start End OMEPRAZOLE 20 MG CAPSULE,DELAYED REL* 30 c* 1 07/18/2018 Route: ORAL Sig: Take 1 capsule by mouth daily before breakfast. 1/2 hr before meal. Disposition: Return in about 3 weeks (around 08/08/2018). Follow-up and Disposition History Recorded Encounter Status:Closed by VIOLET DOS SANTOS CNP on 07/18/18 PROGRESS Observed: 03/17/2018 Status: COMPLETED Source: [place] 8:[address] [facility] REPOSITORY HNO ID: [id number] Author: Hernan Perez Service: (none) Author Type: Physician Type: Progress Notes Filed: 03/17/2018 4:45 PM Note Text: Chief Complaint Patient presents with: F/U 3 Month: Anxiety/Depression and Pain HPI Kenny Blackwell is a 68 year old male who presents here today for a 3 mo f/u. Anxiety/Depression - Since his last visit he continues to still be doing very well. Continues to put his nikhil in gods hands and goes to buddhist weekly. Does admit that he lost his second sister on 01/18 in the last 5 months and feels he hasn't went through the grieving process yet. Neck pain - Continues to have neck pain that radiates down into his shoulder. S/P cervical fusion in 2013. 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 Overall stable with use of Tramadol 50 mg 1 tab every am. RED - Has not been a headache person previously but in the last 3 weeks had a headache located on the top of his head. Reports that he tried Aleve, Ibuprofen and Tylenol with no relief of symptoms. Had to leave work one day due to the symptoms. Denies any N/V or light sensitivity. No RED this week. Past medical history, appointments, medications, allergies reviewed. Previous Medical History PAST MEDICAL HISTORY Diagnosis Date - Basal cell carcinoma 01/31/2013 - Depression - Hypertension - Nausea - Neck pain - Sebaceous cyst 03/13/2014 Previous Surgical History PAST SURGICAL HISTORY Procedure Laterality Date - APPENDECTOMY - COLONOSCOP W/ OR W/O [facility] SPEC 04/05/2013 Colonoscopy - EGD W/O OR W/BRUSH/WASH 12/06/2009 EGD - EGD W/O OR W/BRUSH/WASH 04/05/2013 EGD - REM LESIO TRUNK,ARM,LEG 1.1 -2.0CM 03/13/14 Exc. jonathan cysts x 2 - XR CERVICAL FUSION OR 09/15/14 Family History FAMILY HISTORY Problem Relation Age of Onset - Alzheimer's Disease Mother - Sepsis [OTHER] Sister - None Other Patient Allergies ALLERGIES Allergen Reactions - Codeine Other: See Comments keeps patient awake - Diclofenac Rash - Flagyl [Metronidazo* Intolerance headache, nausea and increased salivation - Flexeril [Cyclobenz* Other: See Comments Leg cramps - [place] Shortness of Breath - Oxycodone Other: See Comments restlessness - Penicillins - Vicodin [Hydrocodon* Other: See Comments Makes patient hyper Current Medications Current Outpatient Prescriptions on File Prior to Visit: FOLIC ACID/MULTIVIT-MIN/LUTEIN (CENTRUM SILVER ORAL) Take by mouth. selenium No current facility-administered medications on file prior to visit. 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 General Appearance: Well appearing, alert, in no acute distress, well-hydrated, well nourished.. Neck: Pain up in the neck muscles. Tightness to palpate muscles Lungs: Lungs clear to auscultation. No wheezing, rhonchi, rales. Heart: RRR without murmur, gallop, or rubs. No ectopy. Health Maintenance List HEPATITIS C SCREENING due on 1993 ADULT PREVNAR-13 due on 2014 - Ordered LIPID SCREEN due on 01/27/2020 DIABETES SCREEN due on 09/29/2020 COLORECTAL CANCER SCREENING,SEE MODIFIER due on 10/11/2022 DTAP,TDAP,TD(3 - Td) due on 02/08/2028 PROSTATE CANCER SCREENING DISCUSSION Completed ABDOMINAL AORTIC ANEURYSM SCREENING TOPIC Completed INFLUENZA Completed PNEUMOVAX AGE 65 AND OVER WITH 5YR LOOKBACK Completed Data reviewed Future orders ASSESSMENT/PLAN: 1. Degeneration of cervical intervertebral disc - ICD9: 722.4, ICD10: M50.30 (primary diagnosis) - Continue use of medication, 1 tab daily, every am. - TRAMADOL 50 MG TABLET 2. Cervical spinal stenosis - ICD9: 723.0, ICD10: M48.02 - Tramadol 50 mg 1 tab po am. 3. History of fusion of cervical spine - ICD9: V45.4, ICD10: Z98.1 - Continue current medication regimen. 4. Anxiety - ICD9: 300.00, ICD10: F41.9 - Continue current medication regimen. - CLONAZEPAM 1 MG TABLET 5. Depression, unspecified depression type - ICD9: 311, ICD10: F32.9 - Continue current medication regimen. 6. Headache, unspecified headache type - ICD9: 784.0, ICD10: R51 - With no RED currently, monitor 7. Need for vaccination - ICD9: V05.9, ICD10: Z23 - PNEUMOCOCCAL-13 VACCINE PCV-13 Follow up in 6 months. Hrenan Perez MD The documentation for this note was completed by Lupe Owens Ma acting as scribe for Hernan Perez MD. March 17, 2018 8:14 AM. CNOV Observed: 03/17/2018 Status: COMPLETED Source: [place] 8:00 AM [facility] REPOSITORY Office Visit ([facility]) KENNY BLACKWELL ([id number]) 1950 M Date Time Provider Department 03/17/18 8:00 AM HERNAN PEREZWS During your visit today, we recorded the following information about you: Pulse Respiration Blood pressure Weight 56/minute 16/minute 124/82 66.9 kg Hernan Perez MD 03/17/2018 4:45 PM Signed Chief Complaint Patient presents with: F/U 3 Month: Anxiety/Depression and Pain HPI Kenny Blackwell is a 68 year old male who presents here today for a 3 mo f/u. Anxiety/Depression - Since his last visit he continues to still be doing very well. Continues to put his nikhil in gods hands and goes to buddhist weekly. Does admit that he lost his second sister on 01/18 in the last 5 months and feels he hasn't went through the grieving process yet. Neck pain - Continues to have neck pain that radiates down into his shoulder. S/P cervical fusion in 2013. 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 Overall stable with use of Tramadol 50 mg 1 tab every am. RED - Has not been a headache person previously but in the last 3 weeks had a headache located on the top of his head. Reports that he tried Aleve, Ibuprofen and Tylenol with no relief of symptoms. Had to leave work one day due to the symptoms. Denies any N/V or light sensitivity. No RED this week. Past medical history, appointments, medications, allergies reviewed. Previous Medical History PAST MEDICAL HISTORY Diagnosis Date - Basal cell carcinoma 01/31/2013 - Depression - Hypertension - Nausea - Neck pain - Sebaceous cyst 03/13/2014 Previous Surgical History PAST SURGICAL HISTORY Procedure Laterality Date - APPENDECTOMY - COLONOSCOP W/ OR W/O BRSH SPEC 04/05/2013 Colonoscopy - EGD W/O OR W/BRUSH/WASH 12/06/2009 EGD - EGD W/O OR W/BRUSH/WASH 04/05/2013 EGD - REM LESIO TRUNK,ARM,LEG 1.1 -2.0CM 03/13/14 Exc. jonathan cysts x 2 - XR CERVICAL FUSION OR 09/15/14 Family History FAMILY HISTORY Problem Relation Age of Onset - Alzheimer's Disease Mother - Sepsis [OTHER] Sister - None Other Patient Allergies ALLERGIES Allergen Reactions - Codeine Other: See Comments keeps patient awake - Diclofenac Rash - Flagyl [Metronidazo* Intolerance headache, nausea and increased salivation - Flexeril [Cyclobenz* Other: See Comments Leg cramps - [place] Shortness of Breath - Oxycodone Other: See Comments restlessness - Penicillins - Vicodin [Hydrocodon* Other: See Comments Makes patient hyper Current Medications Current Outpatient Prescriptions on File Prior to Visit: FOLIC ACID/MULTIVIT-MIN/LUTEIN (CENTRUM SILVER ORAL) Take by mouth. selenium No current facility-administered medications on file prior to visit. 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 and tongue normal, teeth and gums normal, oropharynx normal. Lungs: Lungs clear to auscultation. No wheezing, rhonchi, rales. Heart: RRR without murmur, gallop, or rubs. No ectopy. Abdomen: Normal abdominal exam, Abdomen soft, non-tender. Bowel sounds normal. No masses, organomegaly. Health Maintenance List HEPATITIS C SCREENING due on 1993 ADULT PREVNAR-13 due on 2014 LIPID SCREEN due on 01/27/2020 TETANUS due on 08/11/2020 DIABETES SCREEN due on 09/29/2020 COLORECTAL CANCER SCREENING,SEE MODIFIER due on 10/11/2022 PROSTATE CANCER SCREENING DISCUSSION Completed ABDOMINAL AORTIC ANEURYSM SCREENING TOPIC Completed INFLUENZA Completed PNEUMOVAX AGE 65 AND OVER WITH 5YR LOOKBACK Completed Data reviewed OARRS website checked and validated. All prescriptions have been APPROPRIATELY filled. No suspicious activity was identified.- 12/14/2017 by Hernan Perez MD ASSESSMENT/PLAN: 1. Depression, unspecified depression type - ICD9: 311, ICD10: F32.9 (primary diagnosis) Continue current medication regimen. 2. Anxiety - ICD9: 300.00, ICD10: F41.9 Continue current medication regimen. Follow up in 3 months Hernan Perez MD The documentation for this note was completed by Lupe Owens Ma acting as scribe for Hernan Perez MD. December 14, 2017 8:10 AM. ALLERGIES ALLERGIES DATE TYPE / NAME / CODE REACTION SEVERITY SOURCE CODE 05/24/2015 DRUG DICLOFENAC RASH [address] Main [id number]([facility]) Repository 05/16/2014 DRUG CODEINE OTHER: SEE C [place] [address] [facility] [address] [id number]([facility]) Repository 02/05/2014 DRUG CYCLOBENZAPRINE HCL OTHER: SEE C [address] Main [id number]([facility] [place] [facility]) Repository 09/29/2013 DRUG OXYCODONE OTHER: SEE C [place] INGREDI/[address] [facility] Main [id number]( [place] [facility]) Repository 06/28/2012 DRUG ORANGE BLOSSOM SHORTNESS OF [place] IN[facility]/[address] [facility] Main [id number]( [place] [facility]) Repository 09/29/2010 DRUG/55207 HYDROCODONE-ACETAMINO OTHER: SEE C [place] 100[address]([facility] Main D [facility]) [place] Repository 10/01/2009 DRUG METRONIDAZOLE HCL INTOLERANCE [place] INGR[facility] [facility] Main [id number]( [place] [facility]) Repository 09/17/2009 Drug PENICILLINS [place] Class/4195 Clinic Main [address]([facility] [place] [facility]) Repository ENCOUNTERS ENCOUNTERS ADMIT/DISCHARGE ACCOUNT NUMBER ADMITTING ENCOUNTER LOCATION SOURCE CLASS 10/14/2018 [id number] Ambulatory [facility] Repository 10/06/2018 [id number] Ambulatory [facility] ding:PT Repository 09/20/2018/09/22/20 [id number] Ambulatory [address] Main [place] Repository 08/09/2018/08/10/20 [id number] Ambulatory [place] [address] [facility] [place] Repository 07/18/2018/07/18/20 [id number] Ambulatory [place] [address] [facility] [address] [place] Repository 07/18/2018/07/19/20 [id number] Ambulatory [address] Main [place] Repository 03/17/2018/03/18/20 [id number] Ambulatory [address] Main [place] Repository 02/07/2018/02/08/20 [id number] Ambulatory [place] [address] [facility] Main [place] Repository 02/07/2018/02/09/20 [id number] Ambulatory [place] [address] [facility] Main [place] Repository 12/14/2017/12/14/19 [id number] Ambulatory [address] Main [place] Repository PAYERS PAYERS ENCOUNTER GUARANTOR PAYER SUBSCRIBER SOURCE 10/14/2018 Kenny Mayer [employer]: Insurance:[facility] Pass[place]: [employer] S al [place]aria [id number] Repository [place] Number: Effective [place] [employer], [place] Date: [address] 10/06/2018 KENNY Mayer Primary [facility] Insurance:[facility] ROSALVADOB: Community FUNK RDSHREVE, HMO IN [facility] [id number] [address]Nqu: 08/25/18Policy Number: Repository [id number] () Date:[id number] [address] [address], [place] [address]SZ: 10/06/2018 Secondary NOT GIVENUNK Rodrigo Insurance:SELF PAY [facility] Number: Effective Repository Date:2018-09-27
--- OUTSIDE RECORDS SUMMARY | 2018-11-20 06:11 | XMS RPT_ITS ---
:1950 Author Organization [employer] Address [address] [place] [address] Phone Care Team Providers Name Role Phone Orville BARON, Janet Dueñas Reason for Visit Reason For Visit Description Start Date Follow-up by complaint Preliminary reason for visit data, not yet signed by the author as of neck pain Preliminary reason for visit data, not yet signed by the author as of Chief Complaint Chief Complaint Description Start Date neck pain Preliminary chief complaint data, not yet signed by the author as of Instructions No information available. Plan of Care Type Date Detail Appointment 08:50 AM Janet BARON, [address], [address], Pending order XR CERVICAL 4VWS FLEX/EXT Medications Medication Instructions Start Stop Generic Name NDC Provider Date Date ASPIRIN LOW DOSE 1 tablet daily / ASPIRIN [id number] Susan 81 MG ORAL 17 [place] PRODUCT DESIGN ENGINEER TABLET SELENIUM CAPS 1 capsule daily / SELENIUM CAPS [id number] Susan 17 [place] PRODUCT DESIGN ENGINEER FISH OIL CAPS 1 capsule daily / OMEGA-3 FATTY [id number] Susan 17 ACIDS CAPS [place] [employer] DESIGN ENGINEER POTASSIUM TABS 1 tablet daily / POTASSIUM [id number] Susan 17 TABS [place] [employer] DES[employer]INEER MENS 1 tablet daily / MULTIPLE [id number] Susan MULTIVITAMIN 17 VITAMINS-MINE [place] [employer]ODUCT DESIGN ENGINEER PLUS ORAL TABLET RALS CLONAZEPAM 1 MG 1 tablet daily / CLONAZEPAM 67760186936 Susan TABS 16 [place] PRODUCT DESIGN ENGINEER TRAMADOL HCL 50 1 tablet daily 2016/05/ TRAMADOL HCL [id number] Susan MG TABS 16 [place] PRODUCT DESIGN ENGINEER Conditions or Problems Problem Name Problem Code Onset Status Entry Provider Comment Standard Annotate Date Date Description 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 (SNOMED CT) 11/28 11/28 Justice s ECOLOGY PROFESSOR-LABELER Cervical 78533216 Active Janet Yoder Cervical radiculopath (SNOMED CT) 11/28 11/28 Justice radiculopathy y ECOLOGY PROFESSOR-LABELER Degenerative 78979657 Active Janet Yoder 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, ECOLOGY PROFESSOR-LABELER intervertebral cervical disc History of [id number] Active Janet Yoder History of fusion of 1 (SNOMED 11/28 11/28 Justice cervical spine cervical CT) ECOLOGY PROFESSOR-LABELER fusion spine Pseudoarthro 138654515 Active Andrew S Pseudoarthrosis C4- 5 and sis of (SNOMED CT) 03/10 03/10 Tracy HURTADO of spine C6-7 cervical spine Impingement 960815764 Active Andrew S Impingement syndrome of (SNOMED CT) 03/10 03/10 Tracy HURTADO syndrome of right shoulder region shoulder Parkinson 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 Vital Signs Date Name Value Unit Description BMI (Body Mass 21.60 kg/m2 Body Mass Index Index) [Ratio] Preliminary vital sign data, not yet signed by the author as of BP Diastolic 74 mm[Hg] blood pressure, diastolic Preliminary vital sign data, not yet signed by the author as of BP Systolic 108 mm[Hg] blood pressure, systolic Preliminary vital sign data, not yet signed by the author as of Heart Rate 65 /min pulse rate E&M Preliminary vital sign data, not yet signed by the author as of Height 178 cm height in centimeters E&M Preliminary vital sign data, not yet signed by the author as of Height 70 [in_us] height E&M Preliminary vital sign data, not yet signed by the author as of Weight Measured 68 kg weight in kilograms E&M Preliminary vital sign data, not yet signed by the author as of Weight Measured 150 [lb_av] weight E&M Preliminary vital sign data, not yet signed by the author as of Results Date Name Value Unit Range Flag Description Office Visit: Follow-up by facundo Rm: 5 MEDS REVIEW Done Documentation of current medications (procedure) Preliminary observation data, not yet signed by the author as of Preliminary observation data, not yet signed by the author as of Clinical Summary: HMSPatientID NOP account number Procedures Code Procedure Name Date Entry Date CPT-48017 Physical Therapy G8730 Pain assessment documented as positive - follow-up documented G8427 Current medications documented 1036F Tobacco screening was negative - non user G8420 BMI documented within normal parameters - no follow-up plan is required G8783 Blood pressure within normal parameters - no follow-up required [facility]-[id number] Patient Encounter Medications Administered No information available. Immunizations No information available. Advance Directives There may be information available, but it has not been provided by the sender. Assessments There may be information available, but it has not been provided by the sender. Review of Systems There may be information available, but it has not been provided by the sender. Family History There may be information available, but it has not been provided by the sender. History of Past Illness There may be information available, but it has not been provided by the sender. History of Present Illness There may be information available, but it has not been provided by the sender.
--- NOTE | 2018-12-16 16:11 | HP.PT.NRP ---
HP - Discharge Summary (1) - Patient Information KENNY BLACKWELL was seen in my office for initial evaluation on 10/04/18. The following Plan of Care was established for this patient: Initial Frequency: 2-3x /Week Initial Duration: 4-6 Weeks - Anticipated Interventions Patient/Client Instruction: Educate patient on: Condition, Plan of Care, Risk Factors, Benefits of Fitness Program For the Purpose of:: To improve self management Therapeutic Exercise to Include: Strength training, Body mechanics, Postural training, Active ROM, Scapular Strength/Stabilization For the Purpose of:: To decrease pain, To increase ROM, To improve muscle performance and motor function, To improve ability to perform ADL's, To increase tolerance to activity/condition/position, To improve ability of physical actions for home/community/work/leisure Manual Therapy Techniques to Include: Soft tissue mobilization For the Purpose of:: To decrease pain, To increase ROM, To improve nutrient delivery to tissue Intermittent cervical traction: Yes - CAUTIOUSLY. MANUALLY FIRST. ONLY BY PT. For the Purpose of:: To decrease pain, To increase ROM This patient was last seen in our office 10/06/18. Pertinent comments regarding their Physical therapy will appear below: This patient has not returned to Physical Therapy and is appropriate to return to MD for further follow-up as needed. At this point I will be discontinuing this patient from physical therapy. I would be happy to see this patient again in the future if found appropriate by the physician. Thank you! Dominga Longoria, PT, Cert MDT
== END 2018-10-06 19:00 | disposition home or self-care (01) ==
LOC: PT 08:30
PROVIDERS: Family Provider Internal Medicine; PCP Internal Medicine
DX: M50.10 Cervical disc disorder with radiculopathy, unspecified cervical region (principal); M43.10 Spondylolisthesis, site unspecified; Z98.1 Arthrodesis status
CPT/HCPCS: 97140; 97163; 97530